=== PATIENT | female | born 1975 | race Caucasian/White ===

== ENCOUNTER 2023-05-02 13:56 | Emergency (ER) | payer MEDICAID ==
[~2023-05-02] VITALS: Ht 152.4 cm; Wt 110.0 kg
[~2023-05-02 13:56] MED LIST: ALBUAER3 IN; BECL80AE9 IN; CARI-277 PO; CETI10TA93 PO; DIAZ10TA3 PO; FER325T PO; LEV100T PO; LIRA18IN2 SUBCUT; LISI20TA56 PO; LITH300C3 PO; METF-370 PO; METO10TA3 PO; NOR10T PO; OMEP20CA74 OR; SIMV-270 PO
[2023-05-02 15:05] LABS: Urine Bacteria NONE SEEN /hpf (None Seen); Urine Blood Negative /uL (Negative); Urine Clarity Clear (Clear); Urine Color Colorless (Yellow); Urine Protein, UAD Negative (Negative); Urine Specific Gravity 1.007 (1.001-1.035); Urine Urobilinogen Normal (Negative); Urine WBC <1 /hpf (0 - 5)
[2023-05-02 15:08] LABS: Basophils # (auto) 0.1 10 ^3/uL (0-0.2); Basophils % (auto) 0.5 % (0.0-2.0); Hemoglobin 11.9 g/dL (12.2-16.2); Mean Corpuscular Hemoglobin 26.9 pg (28.0-32.0); Neutrophils % (auto) 66.6 % (37.0-80.0)
[2023-05-02 15:10] LABS: Eosinophils # (auto) 0.5 10 ^3/uL (0-0.8); Eosinophils % (auto) 3.7 % (0.0-7.0); Hematocrit 36.7 % (36.0-46.0); Lymphocytes # (auto) 2.8 10 ^3/uL (0.4-5.4); Lymphocytes % (auto) 22.5 % (10.0-50.0); Mean Corpuscular Hgb Conc. 32.4 g/dL (32.0-36.0); Mean Corpuscular Volume 83.1 fL (80.0-100.0); Monocytes # (auto) 0.8 10 ^3/uL (0-1.3); Monocytes % (auto) 6.7 % (0.0-12.0); Neutrophils # (auto) 8.3 10 ^3/uL (1.6-8.6); Red Blood Cells 4.42 10^6/uL (4.0-5.20); Red Cell Distribution Width 17.2 % (11.8-14.3); White Blood Cell 12.4 10^3/uL (4.4-10.8)
[2023-05-02 15:27] LABS: Alanine Aminotransferase 11 U/L (7-40); Albumin 4.5 g/dL (3.2-4.8); Alkaline Phosphatase 91 U/L (46-116); Anion Gap 7 (5-15); Aspartate Aminotransferase 9 U/L (13-40); Bilirubin, Total 0.3 mg/dL (0.2-1.0); Calcium 9.2 mg/dL (8.7-10.4); Carbon Dioxide 29 mmol/L (20-30); Chloride 106 mmol/L (98-107); Glucose 114 mg/dL (74-106); Potassium 3.6 mmol/L (3.5-5.1); Sodium 142 mmol/L (136-145); Total Protein 7.3 g/dL (5.7-8.2)
[2023-05-02 15:29] LABS: BUN/Creatinine Ratio 7.1 (10.0-20.0); Blood Urea Nitrogen < 5 mg/dL (9-23)
[2023-05-02 17:07] VITALS: BP 107/68; PULSE 81; RESP 18; TEMP 97.6; O2SAT 97
== END 2023-05-02 17:08 | disposition home or self-care (01) ==
LOC: ER 13:56
DX: K43.9 Ventral hernia without obstruction or gangrene (principal); D72.829 Elevated white blood cell count, unspecified
CPT/HCPCS: 36415; 74176; 80053; 81001; 85025